=== PATIENT | male | born 2000 | race Caucasian/White ===

== ENCOUNTER 2020-09-06 08:11 | Day surgery (SDC) | payer BC, OTHER ==
[~2020-09-06] VITALS: Ht 167.6 cm; Wt 65.4 kg
[~2020-09-06 08:11] MED LIST: LORTAB 5-325 M1 EACH PO; PRED10 PO; PRED20 PO; Permethrin60 GM TP; SULTRIDS PO; TRIA80TC TOP
--- NOTE | 2020-09-06 08:49 | NUR ---
09/06/20 0849 Carmen Barry BLOOD WAS DRAWN FOR PRP ANTICOAG WAS ADDED TO SPECIMEN AND SPECIMEN WAS DELIVERED TO THE OR AND SPUN.
--- NOTE | 2020-09-06 13:08 | NUR ---
09/06/20 Noreen Lemon PT WEANED OFF OXYGEN AND SATS REMAINED AT 100%.
== END 2020-09-06 13:33 | disposition home or self-care (01) ==
LOC: ORSCSDS 08:11
PROVIDERS: Orthopaedic Surgery
PROC: 0MRN47Z Replacement of Right Knee Bursa and Ligament with Autologous Tissue Substitute, Percutaneous Endoscopic Approach (ICD-10-PCS; principal; 2020-09-06 09:30)
DX: S83.511A Sprain of anterior cruciate ligament of right knee, initial encounter (principal); F17.210 Nicotine dependence, cigarettes, uncomplicated
CPT/HCPCS: A9270; C1713; J0690; J1100; J2250; J2405; J2704; J3010; J7120